=== PATIENT | female | born 1975 | race Caucasian/White ===

== ENCOUNTER 2025-05-09 06:51 | Day surgery (SDC) | payer BC ==
[~2025-05-09] VITALS: Ht 165.1 cm; Wt 73.0 kg
[~2025-05-09 06:51] MED LIST: AMIT25TA19 PO; BIOT1CAP2 PO; BUPR-766 PO; BUPR150T12 PO; ERGO500029; ERYT-86 PO; FLUO-365 PO; HYDR200T46 PO; METF500T13 PO; MINO-13 PO; PANT40TA29 PO; PROB250C PO; SPIR100T3; SPIR100T3 PO; TOPI-256 PO
[2025-05-09] MEDS ORDERED: LIDOCAINE 2% 100 MG/5 ML SDV (FOR ANES.) As Ordered ONE (07:49)
[2025-05-09 08:00] VITALS: TEMP 97.7
[2025-05-09 08:26] VITALS: BP 113/67; O2SAT 97
== END 2025-05-09 08:28 | disposition home or self-care (01) ==
LOC: M OPP 06:51
PROVIDERS: ATTEND Surgery
DX: K31.89 Other diseases of stomach and duodenum (principal); Z79.84 Long term (current) use of oral hypoglycemic drugs; Z79.899 Other long term (current) drug therapy
CPT/HCPCS: 43239; 88305; J3010